=== PATIENT | female | born 1985 | race Caucasian/White ===

== ENCOUNTER 2023-09-17 01:43 | Emergency (ER) | payer BC ==
[~2023-09-17] VITALS: Ht 165.1 cm; Wt 74.8 kg
[~2023-09-17 01:43] MED LIST: NKHM
[2023-09-17 02:25] LABS: BASO % 0.2 % (0.0-1.0); HEMATOCRIT 36.5 % (37.0-47.0); LYMPH # 1.1 10*3/uL (1.3-4.4); LYMPH % 9.7 % (27.0-41.0); MEAN CELL VOLUME 91.7 fl (81.0-99.0); MEAN CORPUSCULAR HGB 30.9 pg (27.0-31.0); MEAN CORPUSCULAR HGB CONC 33.7 g/dl (33.0-37.0); MEAN PLATELET VOLUME 10.7 fl (9.6-12.3); MONO # 0.6 10*3/uL (0.1-1.0); MONO % 5.6 % (3.0-9.0); NEUT # 9.3 10*3/uL (2.3-7.9); PLATELET COUNT AUTOMATED 241 10*3/uL (130-400); RED BLOOD COUNT 3.98 10*6/uL (4.10-5.10); RED CELL DISTRI WIDTH 11.9 % (0-14.5); WHITE BLOOD COUNT 11.1 10*3/uL (4.8-10.8)
[2023-09-17 02:36] LABS: ACT PARTIAL THROMBO TIME 23.6 SECONDS (20.0-32.1)
[2023-09-17] MEDS ORDERED: CEFADROXIL500 M1 PO (02:36)
[2023-09-17] MEDS ORDERED: HYDROCODONE-AC1 EAC1 PO (02:36)
[2023-09-17 02:47] LABS: ALKALINE PHOSPHATASE 45 U/L (46-116); BUN 7 mg/dl (9-23); CHLORIDE 107 mmol/L (98-107); LIPASE 105 U/L (12-53); TOTAL PROTEIN 6.8 gm/dL (6.0-8.0)
[2023-09-17 02:48] LABS: SGPT/ALT < 7 U/L (5-49)
[2023-09-17 02:50] LABS: BILIRUBIN Negative (Negative); BLOOD 2+ (Negative); CLARITY Clear (Clear); COLOR Yellow (Yellow); GLUCOSE Negative (Negative); KETONE Negative (Negative); LEUKO ESTERASE Negative (Negative); NITRITE Negative (Negative); SPECIFIC GRAVITY <= 1.005 (1.001-1.030); UROBILINOGEN 0.2 E.U./dl (0.0-1.0)
[2023-09-17 03:01] LABS: RBC 41-50 rbc/hpf (0-2)
[2023-09-17] MEDS ORDERED: FLOMAX0.4 MG PO (03:11)
== END 2023-09-17 03:13 | disposition home or self-care (01) ==
LOC: ED 01:43
PROVIDERS: Internal Medicine
DX: R31.9 Hematuria, unspecified (principal); Z88.0 Allergy status to penicillin; Z98.890 Other specified postprocedural states